=== PATIENT | male | born 1955 | race Caucasian/White ===

== ENCOUNTER 2019-01-06 20:28 | Inpatient (IN) | payer MEDICARE, OTHER ==
[2019-01-06 20:57] LABS: ADD MAN DIFF? NO
[2019-01-06 20:58] LABS: WHITE BLOOD COUNT 4.7 10^3/ul (4.8-10.8)
[2019-01-06 20:58] LABS: BASOPHILS % 0.4 % (0.0-2.0); EOSINOPHILS # 0.2 10^3/ul (0.0-0.5); EOSINOPHILS % 3.9 % (0.0-7.0); HEMATOCRIT 29.9 % (42.0-52.0); LYMPHOCYTES # 0.8 10^3/ul (0.8-2.9); LYMPHOCYTES % 17.2 % (15.0-51.0); MEAN CORPUSCULAR HEMOGLOBIN 23.8 pg (29.0-33.0); MEAN CORPUSCULAR HGB CONC 30.1 g/dl (32.0-37.0); MEAN CORPUSCULAR VOLUME 79.1 fl (82.0-101.0); MEAN PLATELET VOLUME 9.2 fl (7.4-10.4); MONOCYTE # 0.5 10^3/ul (0.3-0.9); MONOCYTES % 11.4 % (0.0-11.0); NEUTROPHIL # 3.1 10^3/ul (1.6-7.5); NEUTROPHILS % 66.7 % (39.0-77.0); PLATELET COUNT 227 10^3/UL (140-415); RED BLOOD COUNT 3.78 10^6/ul (4.70-6.10)
[2019-01-06 21:17] LABS: INR 1.15; PROTIME 14.8 Sec (11.9-14.9); PT RATIO 1.2
[2019-01-06 21:18] LABS: PARTIAL THROMBOPLASTIN TIME 23.3 Sec (23.0-35.0)
[2019-01-06 21:19] LABS: ALANINE AMINOTRANSFERASE 20 IU/L (13-69); ALBUMIN 3.1 g/dl (3.3-4.9); ALBUMIN/GLOBULIN RATIO 0.81; ALKALINE PHOSPHATASE 230 IU/L (42-121); AMYLASE 52 U/L (11-123); ANION GAP 6 (5-13); ASPARTATE AMINO TRANSFERASE 26 IU/L (15-46); BILIRUBIN,INDIRECT 0.5 mg/dl (0-1.1); BILIRUBIN,TOTAL 0.5 mg/dl (0.2-1.3); BLOOD UREA NITROGEN 14 mg/dl (7-20); CALCIUM 8.5 mg/dl (8.4-10.2); CHLORIDE 94 mmol/L (97-110); CREATINE KINASE 129 IU/L (23-200); CREATININE 1.63 mg/dl (0.61-1.24); Estimated GFR 43 mL/min (>60); GLUCOSE 123 mg/dl (70-220); LIPASE 53 U/L (23-300); POTASSIUM 3.2 mmol/L (3.5-5.1); SODIUM 140 mmol/L (135-144); TOTAL PROTEIN 6.9 g/dl (6.1-8.1)
[2019-01-06 21:29] LABS: CARBON DIOXIDE 40 mmol/L (21-31)
[2019-01-06 21:31] LABS: CK INDEX 4.4; CK-MB 5.65 ng/ml (0.0-2.4); TROPONIN-I 0.025 ng/ml (0.000-0.120)
[2019-01-06 23:06] LABS: AADO2 Arterial 42.1 mmHg (7.0-24.0); Arterial Base Excess 10.1 mmol/L (-3.0-3); Arterial Blood Gas Oxygen Sat 91.4 mmHG (95.0-98.0); Arterial COHb 0.6 % (0.0-3.0); Arterial Fraction of Oxyhgb 90.7 % (93.0-99.0); Arterial HCO3 33.3 mmol/L (22.0-26.0); Arterial MetHb 0.2 % (0.0-1.5); Arterial pCO2 39.4 mmhg (35-45); MODE ROOM AIR; Site Right Brachial
[2019-01-06] MEDS ORDERED: BISACODYL (EC) 5 MG TAB PO (23:30)
[2019-01-06] MEDS ORDERED: NACL 0.9% 3 ML SYG IV (23:30)
[2019-01-06] MEDS ORDERED: ONDANSETRON 4 MG INJ IV ×2 (23:30)
[2019-01-06] MEDS ORDERED: ACETAMINOPHEN 325 MG TAB PO ×2 (23:30)
[2019-01-06] MEDS ORDERED: DOCUSATE SODIUM 100 MG CAP PO (23:30)
[2019-01-06] MEDS ORDERED: GLUCOSE GEL 15 GRAM TUBE BUCCAL (23:45)
[2019-01-06] MEDS ORDERED: GLUCOSE GEL 15 GRAM TUBE PO ×2 (23:45)
[2019-01-06] MEDS ORDERED: GLUCAGON 1 MG INJ IM (23:45)
[2019-01-06] MEDS ORDERED: DEXTROSE 50% 50 ML SYRINGE IV ×2 (23:45)
[2019-01-07 00:04] LABS: ADD UMIC YES; UR ASCORBIC ACID NEGATIVE (NEGATIVE); UR BILIRUBIN (Dip) NEGATIVE (NEGATIVE); UR BLOOD (Dip) NEGATIVE (NEGATIVE); UR CLARITY CLEAR (CLEAR); UR COLOR YELLOW (YELLOW); UR GLUCOSE (Dip) 1+ mg/dL (NEGATIVE); UR KETONES (Dip) NEGATIVE (NEGATIVE); UR LEUKOCYTE ESTERASE (Dip) NEGATIVE Leu/ul (NEGATIVE); UR NITRITE (Dip) NEGATIVE (NEGATIVE); UR RBC 3 /HPF (0-5); UR SPECIFIC GRAVITY (Dip) 1.007 (1.003-1.030); UR SQUAMOUS EPITHELIAL CELL FEW /HPF (FEW); UR TOTAL PROTEIN (Dip) 3+ mg/dl (NEGATIVE); UR TRANSITIONAL EPI CELL FEW /HPF (NONE SEEN); UR UROBILINOGEN (Dip) NEGATIVE (NEGATIVE); UR WBC 10 /HPF (0-5)
[2019-01-07] MEDS: HEPARIN 5,000 UNIT/1 ML VIAL SC ×4 (00:15→23:31)
[2019-01-07] MEDS: INSULIN ASPART [NOVOLOG] 3 ML PEN SC ×5 (01:00→20:36)
[2019-01-07] MEDS: DEXTROSE 5%-0.45% NACL 1,000 ML IV (01:05)
[2019-01-07] MEDS: POTASSIUM CHLORIDE (SR) 20 MEQ TAB PO (01:09)
[2019-01-07] MEDS: SOD CHLORIDE 0.9% 500 ML IV (01:09)
[2019-01-07 01:25] LABS: MAGNESIUM 1.8 mg/dl (1.7-2.5)
[2019-01-07] MEDS: ACCU-CHEK XX (02:00)
[2019-01-07 05:15] LABS: ADD MAN DIFF? NO; BASOPHIL # 0.1 10^3/ul (0.0-0.1); BASOPHILS % 0.9 % (0.0-2.0); EOSINOPHILS # 0.1 10^3/ul (0.0-0.5); EOSINOPHILS % 2.6 % (0.0-7.0); HEMATOCRIT 28.1 % (42.0-52.0); HEMOGLOBIN 8.4 g/dl (14.0-18.0); LYMPHOCYTES # 1.2 10^3/ul (0.8-2.9); LYMPHOCYTES % 22.2 % (15.0-51.0); MEAN CORPUSCULAR HEMOGLOBIN 23.6 pg (29.0-33.0); MEAN CORPUSCULAR HGB CONC 29.9 g/dl (32.0-37.0); MEAN CORPUSCULAR VOLUME 78.9 fl (82.0-101.0); MEAN PLATELET VOLUME 9.1 fl (7.4-10.4); MONOCYTE # 0.5 10^3/ul (0.3-0.9); MONOCYTES % 9.9 % (0.0-11.0); NEUTROPHIL # 3.5 10^3/ul (1.6-7.5); NEUTROPHILS % 64.2 % (39.0-77.0); PLATELET COUNT 238 10^3/UL (140-415); RED BLOOD COUNT 3.56 10^6/ul (4.70-6.10); RED CELL DISTRIBUTION WIDTH 16.8 % (11.5-14.5)
[2019-01-07 05:15] LABS: WHITE BLOOD COUNT 5.4 10^3/ul (4.8-10.8)
[2019-01-07 05:35] LABS: IRON 28 ug/dl (35-150)
[2019-01-07 05:37] LABS: ALANINE AMINOTRANSFERASE 24 IU/L (13-69); ALBUMIN 3.1 g/dl (3.3-4.9); ALBUMIN/GLOBULIN RATIO 0.77; ALKALINE PHOSPHATASE 223 IU/L (42-121); ANION GAP 5 (5-13); ASPARTATE AMINO TRANSFERASE 27 IU/L (15-46); BILIRUBIN,INDIRECT 0.4 mg/dl (0-1.1); BILIRUBIN,TOTAL 0.4 mg/dl (0.2-1.3); BLOOD UREA NITROGEN 15 mg/dl (7-20); CALCIUM 8.5 mg/dl (8.4-10.2); CARBON DIOXIDE 34 mmol/L (21-31); CHLORIDE 101 mmol/L (97-110); CHOL/HDL RATIO 4.6 RATIO; CHOLESTEROL 98 mg/dl (100-200); CREATININE 2.12 mg/dl (0.61-1.24); Estimated GFR 32 mL/min (>60); GLUCOSE 133 mg/dl (70-220); HDL CHOLESTEROL 21 mg/dl (30-78); LDL CHOLESTEROL,CALCULATED 48 mg/dl; MAGNESIUM 1.8 mg/dl (1.7-2.5); POTASSIUM 3.9 mmol/L (3.5-5.1); SODIUM 140 mmol/L (135-144); TOTAL PROTEIN 7.1 g/dl (6.1-8.1); TRIGLYCERIDES 144 mg/dl (0-149)
[2019-01-07 05:42] LABS: HEMOGLOBIN A1C 8.7 % (0-5.9)
[2019-01-07 05:44] LABS: % IRON SATURATION 11 % SAT (22-52); TOTAL IRON BINDING CAPACITY 258 ug/dl (241-421)
[2019-01-07] MEDS: AMLODIPINE 10 MG TAB PO (08:47)
[2019-01-07] MEDS: CHOLECALCIFEROL 1,000 UNIT TAB PO (08:47)
[2019-01-07] MEDS ORDERED: VANCOMYCIN IV PER PHARMACY XX (09:00)
[2019-01-07] MEDS: VANCOMYCIN 1.5 GM/NS 250 ML 250 ML IVPB (11:30)
[2019-01-07 15:52] LABS: C-REACTIVE PROTEIN 4.6 mg/dl (0.0-0.9)
[2019-01-07 16:40] LABS: ERYTHROCYTE SEDIMENTATION RATE 75 mm/Hr (0-20)
[2019-01-07 17:55] LABS: HEPATITIS B SURFACE ANTIGEN NEGATIVE (NEGATIVE)
[2019-01-07 18:00] LABS: PROCALCITONIN 0.97 ng/mL (0.00-0.10)
[2019-01-07 18:13] LABS: HEPATITIS B SURFACE ANTIBODY NEGATIVE (NEGATIVE)
[2019-01-07] MEDS: ATORVASTATIN 80 MG TAB PO (20:22)
[2019-01-07] MEDS: GABAPENTIN 100 MG CAP PO (20:22)
[2019-01-08] MEDS: ACCU-CHEK XX (02:00)
[2019-01-08] MEDS: HEPARIN 5,000 UNIT/1 ML VIAL SC ×3 (06:33→22:12)
[2019-01-08] MEDS: INSULIN ASPART [NOVOLOG] 3 ML PEN SC ×2 (07:49→12:25)
[2019-01-08] MEDS: AMLODIPINE 10 MG TAB PO (08:03)
[2019-01-08] MEDS: CHOLECALCIFEROL 1,000 UNIT TAB PO (08:03)
[2019-01-08] MEDS: CEFTRIAXONE 1 GM/50 ML (PMX) 50 ML IVPB (14:21)
[2019-01-08] MEDS ORDERED: DIPHENHYDRAMINE 50 MG INJ (15:06)
[2019-01-08] MEDS: DIPHENHYDRAMINE 50 MG INJ IV (15:19)
[2019-01-08] MEDS ORDERED: DIPHENHYDRAMINE 50 MG INJ IV (15:30)
[2019-01-08] MEDS: EPINEPHrine 0.1 MG/ML SYG IV ×2 (16:26→16:27)
[2019-01-08] MEDS: EPINEPHrine 1 MG INJ IM (16:27)
[2019-01-08] MEDS: ALBUTEROL 0.083% (NEB) 2.5 MG/3 ML AMP HHN (16:50)
[2019-01-08] MEDS: METHYLPREDNISOLONE 125 MG INJ IV (17:47)
[2019-01-08] MEDS: EPOETIN ALFA-EPBX (ESRD) 4,000 UNIT/ML VIAL SC (17:50)
[2019-01-08] MEDS: CALCIUM ACETATE 667 MG CAP PO (17:52)
[2019-01-08] MEDS: INSULIN ASP PROT/ASPART (70/30) PEN SC (17:59)
[2019-01-08] MEDS: GABAPENTIN 100 MG CAP PO (21:00)
[2019-01-08] MEDS: ATORVASTATIN 80 MG TAB PO (21:00)
[2019-01-09] MEDS: ACCU-CHEK XX ×2 (02:00→05:10)
[2019-01-09] MEDS: INSULIN ASPART [NOVOLOG] 3 ML PEN SC ×3 (03:03→17:53)
[2019-01-09] MEDS: INSULIN REGULAR, HUMAN 100 UNIT/1 ML 3ML VIAL IV (05:24)
[2019-01-09] MEDS: HEPARIN 5,000 UNIT/1 ML VIAL SC ×2 (05:59→14:24)
[2019-01-09 06:12] LABS: VANCOMYCIN,RANDOM 9.5 ug/ml
[2019-01-09] MEDS ORDERED: INSULIN ASP PROT/ASPART (70/30) PEN SC (07:00)
[2019-01-09] MEDS: INSULIN ASP PROT/ASPART (70/30) PEN SC ×3 (08:07→17:52)
[2019-01-09] MEDS: CHOLECALCIFEROL 1,000 UNIT TAB PO (08:14)
[2019-01-09] MEDS: CALCIUM ACETATE 667 MG CAP PO ×3 (08:14→17:42)
[2019-01-09] MEDS: AMLODIPINE 10 MG TAB PO (08:14)
[2019-01-09] MEDS: NPH, HUMAN INSULIN ISOPHANE 3ML VIAL SC (08:16)
[2019-01-09 09:12] LABS: GLUCOSE 493 mg/dl (70-220)
[2019-01-09] MEDS: VANCOMYCIN 1.5 GM/NS 250 ML 250 ML IVPB (10:40)
[2019-01-09] MEDS ORDERED: DOXYCYCLINE 100 MG TAB PO (11:00)
[2019-01-09] MEDS ORDERED: TOBRAMYCIN IV PER PHARMACY XX (12:00)
[2019-01-09] MEDS ORDERED: TOBRAMYCIN 130 MG in SOD CHLORIDE 0.9% 100 ML IVPB (13:00)
[2019-01-09] MEDS ORDERED: TOBRAMYCIN IVPB (13:00)
[2019-01-09] MEDS ORDERED: DEXTROSE 5% IVPB (13:00)
[2019-01-09] MEDS: SOD FERRIC GLUC COMPLX 125 MG in SOD CHLORIDE 0.9% 100 ML IVPB (14:16)
[2019-01-09] MEDS: LEVOFLOXACIN 250 MG TAB PO (15:19)
[2019-01-09] MEDS ORDERED: TOBRAMYCIN 80 MG in SOD CHLORIDE 0.9% 50 ML IVPB (16:30)
[2019-01-10] MEDS ORDERED: INSULIN ASP PROT/ASPART (70/30) PEN SC ×2 (07:00)
== END 2019-01-09 20:28 | disposition home health service (06) | DRG 629 ==
LOC: 6WM 23:30 → E/R 20:28
PROVIDERS: Family Medicine
PROC: 0QBN0ZZ Excision of Right Metatarsal, Open Approach (ICD-10-PCS; principal; 2019-01-07)
PROC: 5A1D70Z Performance of Urinary Filtration, Intermittent, Less than 6 Hours Per Day (ICD-10-PCS; 2019-01-07)
DX: E11.621 Type 2 diabetes mellitus with foot ulcer (principal); I12.0 Hypertensive chronic kidney disease with stage 5 chronic kidney disease or end stage renal disease; M86.671 Other chronic osteomyelitis, right ankle and foot; E11.22 Type 2 diabetes mellitus with diabetic chronic kidney disease; E11.42 Type 2 diabetes mellitus with diabetic polyneuropathy; E11.649 Type 2 diabetes mellitus with hypoglycemia without coma; E11.69 Type 2 diabetes mellitus with other specified complication; N18.6 End stage renal disease; E11.65 Type 2 diabetes mellitus with hyperglycemia; L97.519 Non-pressure chronic ulcer of other part of right foot with unspecified severity; E11.51 Type 2 diabetes mellitus with diabetic peripheral angiopathy without gangrene; E86.0 Dehydration; E78.5 Hyperlipidemia, unspecified; B95.61 Methicillin susceptible Staphylococcus aureus infection as the cause of diseases classified elsewhere; B95.2 Enterococcus as the cause of diseases classified elsewhere; D63.8 Anemia in other chronic diseases classified elsewhere; Z79.4 Long term (current) use of insulin; Z99.2 Dependence on renal dialysis; Z89.421 Acquired absence of other right toe(s)
CPT/HCPCS: 36415; 36600; 70450; 71045; 73630; 73718; 80053; 80061; 80202; 81001; 82150; 82550; 82553; 82728; 82803; 82947; 82962; 83036; 83540; 83690; 83735; 84145; 84443; 84484; 85025; 85610; 85651; 85730; 86140; 86706; 87070; 87340; 90935; 93005; 93306; 93880; 93922; 94664; 99285-25

== ENCOUNTER 2019-02-17 13:46 | Inpatient (IN) | payer MEDICARE, OTHER ==
[2019-02-17] MEDS: ACETAMINOPHEN 325 MG TAB PO ×2 (14:00→20:28)
[2019-02-17] MEDS: LEVOFLOXACIN 750MG/D5W (PMX) 150 ML IVPB (14:01)
[2019-02-17] MEDS: SODIUM CHLORIDE 0.9% 1L BAG IV* (14:01)
[2019-02-17 14:07] LABS: ADD MAN DIFF? NO
[2019-02-17 14:14] LABS: WHITE BLOOD COUNT 3.7 10^3/ul (4.8-10.8)
[2019-02-17 14:14] LABS: ABNORMAL IP MESSAGE 1; BASOPHILS % 0.3 % (0.0-2.0); EOSINOPHILS % 0.5 % (0.0-7.0); HEMATOCRIT 31.2 % (42.0-52.0); HEMOGLOBIN 9.4 g/dl (14.0-18.0); LYMPHOCYTES # 0.6 10^3/ul (0.8-2.9); LYMPHOCYTES % 16.1 % (15.0-51.0); MEAN CORPUSCULAR HEMOGLOBIN 23.3 pg (29.0-33.0); MEAN CORPUSCULAR HGB CONC 30.1 g/dl (32.0-37.0); MEAN CORPUSCULAR VOLUME 77.2 fl (82.0-101.0); MEAN PLATELET VOLUME 9.4 fl (7.4-10.4); MONOCYTE # 0.7 10^3/ul (0.3-0.9); MONOCYTES % 17.8 % (0.0-11.0); NEUTROPHIL # 2.4 10^3/ul (1.6-7.5); PLATELET COUNT 123 10^3/UL (140-415); POSITIVE DIFF @See below; RED BLOOD COUNT 4.04 10^6/ul (4.70-6.10)
[2019-02-17 14:44] LABS: INR 1.23; PROTIME 15.6 Sec (11.9-14.9); PT RATIO 1.2
[2019-02-17 14:45] LABS: PARTIAL THROMBOPLASTIN TIME 32.1 Sec (23.0-35.0)
[2019-02-17 14:50] LABS: ALANINE AMINOTRANSFERASE 34 IU/L (13-69); ALBUMIN 3.6 g/dl (3.3-4.9); ALBUMIN/GLOBULIN RATIO 0.97; ALKALINE PHOSPHATASE 232 IU/L (42-121); ANION GAP 11 (5-13); ASPARTATE AMINO TRANSFERASE 44 IU/L (15-46); BILIRUBIN,INDIRECT 0.8 mg/dl (0-1.1); BILIRUBIN,TOTAL 0.8 mg/dl (0.2-1.3); BLOOD UREA NITROGEN 17 mg/dl (7-20); CALCIUM 8.4 mg/dl (8.4-10.2); CARBON DIOXIDE 33 mmol/L (21-31); CHLORIDE 90 mmol/L (97-110); CREATININE 2.27 mg/dl (0.61-1.24); Estimated GFR 29 mL/min (>60); GLUCOSE 175 mg/dl (70-220); POTASSIUM 3.9 mmol/L (3.5-5.1); SODIUM 134 mmol/L (135-144); TOTAL PROTEIN 7.3 g/dl (6.1-8.1)
[2019-02-17 14:52] LABS: TROPONIN-I 0.358 ng/ml (0.000-0.120)
[2019-02-17] MEDS: ASPIRIN 81 MG TAB PO (15:55)
[2019-02-17] MEDS: VANCOMYCIN 1 GM (PMX) 250 ML IVPB (15:55)
[2019-02-17] MEDS ORDERED: ONDANSETRON 4 MG INJ IV ×2 (16:00→17:00)
[2019-02-17] MEDS ORDERED: ACETAMINOPHEN 325 MG TAB PO (16:00)
[2019-02-17] MEDS ORDERED: DOCUSATE SODIUM 100 MG CAP PO (17:00)
[2019-02-17] MEDS ORDERED: HYDROCODONE/APAP (5/325) TAB PO (17:00)
[2019-02-17] MEDS ORDERED: NACL 0.9% 3 ML SYG IV (17:00)
[2019-02-17] MEDS ORDERED: MAGNESIUM HYDROXIDE 30ML CUP PO (17:00)
[2019-02-17] MEDS ORDERED: VANCOMYCIN IV PER PHARMACY XX (17:00)
[2019-02-17] MEDS ORDERED: NITROGLYCERIN (SL) 0.4 MG TAB SL (17:00)
[2019-02-17 18:02] LABS: CREATINE KINASE 297 IU/L (23-200)
[2019-02-17 18:05] LABS: LACTIC ACID 1.3 mmol/L (0.5-2.0)
[2019-02-17 18:15] LABS: CK INDEX 1.9
[2019-02-17] MEDS: CALCIUM ACETATE 667 MG CAP PO (18:51)
[2019-02-17] MEDS ORDERED: GLUCOSE GEL 15 GRAM TUBE PO ×2 (19:00)
[2019-02-17] MEDS ORDERED: GLUCOSE GEL 15 GRAM TUBE BUCCAL (19:00)
[2019-02-17] MEDS ORDERED: DEXTROSE 50% 50 ML SYRINGE IV (19:00)
[2019-02-17] MEDS ORDERED: GLUCAGON 1 MG INJ IM (19:00)
[2019-02-17] MEDS: ALBUTEROL 0.083% (NEB) 2.5 MG/3 ML AMP HHN (20:00)
[2019-02-17] MEDS: GUAIFENESIN/DM 5ML CUP PO (20:27)
[2019-02-17] MEDS: VANCOMYCIN 500 MG (PMX) 100 ML IVPB (20:33)
[2019-02-17 20:39] LABS: LACTIC ACID 1.2 mmol/L (0.5-2.0)
[2019-02-17] MEDS ORDERED: FUROSEMIDE 40 MG TAB PO (21:00)
[2019-02-17] MEDS: INSULIN ASP PROT/ASPART (70/30) PEN SC (21:00)
[2019-02-17 23:52] LABS: CREATINE KINASE 324 IU/L (23-200)
[2019-02-18 00:09] LABS: CK INDEX 1.5
[2019-02-18 00:11] LABS: CK-MB 4.94 ng/ml (0.0-2.4)
[2019-02-18 01:24] LABS: ADD MAN DIFF? NO
[2019-02-18 01:28] LABS: BASOPHILS % 0.2 % (0.0-2.0); EOSINOPHILS % 0.2 % (0.0-7.0); HEMATOCRIT 30.6 % (42.0-52.0); LYMPHOCYTES # 0.7 10^3/ul (0.8-2.9); LYMPHOCYTES % 16.7 % (15.0-51.0); MEAN CORPUSCULAR HEMOGLOBIN 22.8 pg (29.0-33.0); MEAN CORPUSCULAR HGB CONC 29.4 g/dl (32.0-37.0); MEAN CORPUSCULAR VOLUME 77.7 fl (82.0-101.0); MONOCYTE # 0.6 10^3/ul (0.3-0.9); MONOCYTES % 14.3 % (0.0-11.0); NEUTROPHILS % 68.4 % (39.0-77.0); PLATELET COUNT 124 10^3/UL (140-415); RED BLOOD COUNT 3.94 10^6/ul (4.70-6.10); RED CELL DISTRIBUTION WIDTH 18.4 % (11.5-14.5)
[2019-02-18 01:28] LABS: WHITE BLOOD COUNT 4.4 10^3/ul (4.8-10.8)
[2019-02-18 01:47] LABS: INR 1.34; PROTIME 16.7 Sec (11.9-14.9); PT RATIO 1.3
[2019-02-18 01:48] LABS: PARTIAL THROMBOPLASTIN TIME 35.5 Sec (23.0-35.0)
[2019-02-18] MEDS: HEPARIN 25000 UNITS/250 ML 250 ML IV (02:27)
[2019-02-18] MEDS: GUAIFENESIN/DM 5ML CUP PO (02:46)
[2019-02-18] MEDS: ALBUTEROL 0.083% (NEB) 2.5 MG/3 ML AMP HHN ×3 (03:26→13:00)
[2019-02-18] MEDS: ACETAMINOPHEN 325 MG TAB PO (04:36)
[2019-02-18] MEDS: PANTOPRAZOLE (EC) 40 MG TAB PO (05:44)
[2019-02-18] MEDS: BUMETANIDE 1 MG TAB PO (08:23)
[2019-02-18] MEDS: CALCIUM ACETATE 667 MG CAP PO ×3 (08:23→18:00)
[2019-02-18] MEDS: AMLODIPINE 10 MG TAB PO (08:24)
[2019-02-18] MEDS: INSULIN ASP PROT/ASPART (70/30) PEN SC (08:33)
[2019-02-18 09:13] LABS: ADD MAN DIFF? NO
[2019-02-18 09:19] LABS: BASOPHILS % 0.2 % (0.0-2.0); HEMATOCRIT 30.3 % (42.0-52.0); LYMPHOCYTES % 20.2 % (15.0-51.0); MEAN CORPUSCULAR HGB CONC 29.7 g/dl (32.0-37.0); MEAN CORPUSCULAR VOLUME 77.5 fl (82.0-101.0); MEAN PLATELET VOLUME 10.1 fl (7.4-10.4); MONOCYTE # 0.6 10^3/ul (0.3-0.9); MONOCYTES % 12.1 % (0.0-11.0); NEUTROPHIL # 3.2 10^3/ul (1.6-7.5); NEUTROPHILS % 66.9 % (39.0-77.0); PLATELET COUNT 128 10^3/UL (140-415); RED BLOOD COUNT 3.91 10^6/ul (4.70-6.10); RED CELL DISTRIBUTION WIDTH 18.1 % (11.5-14.5)
[2019-02-18 09:19] LABS: WHITE BLOOD COUNT 4.8 10^3/ul (4.8-10.8)
[2019-02-18 09:35] LABS: ALANINE AMINOTRANSFERASE 28 IU/L (13-69); ALBUMIN 3.6 g/dl (3.3-4.9); ALBUMIN/GLOBULIN RATIO 1.02; ALKALINE PHOSPHATASE 201 IU/L (42-121); ANION GAP 11 (5-13); ASPARTATE AMINO TRANSFERASE 37 IU/L (15-46); BILIRUBIN,INDIRECT 0.6 mg/dl (0-1.1); BILIRUBIN,TOTAL 0.6 mg/dl (0.2-1.3); BLOOD UREA NITROGEN 27 mg/dl (7-20); CALCIUM 8.5 mg/dl (8.4-10.2); CARBON DIOXIDE 31 mmol/L (21-31); CHLORIDE 93 mmol/L (97-110); CREATININE 3.38 mg/dl (0.61-1.24); Estimated GFR 18 mL/min (>60); GLUCOSE 123 mg/dl (70-220); POTASSIUM 3.6 mmol/L (3.5-5.1); SODIUM 135 mmol/L (135-144); TOTAL PROTEIN 7.1 g/dl (6.1-8.1)
[2019-02-18 09:38] LABS: PARTIAL THROMBOPLASTIN TIME 45.5 Sec (23.0-35.0)
[2019-02-18 10:17] LABS: MAGNESIUM 1.8 mg/dl (1.7-2.5)
[2019-02-18] MEDS: HEPARIN 1000 UNITS/ML 10 ML INJ IV (11:02)
[2019-02-18] MEDS: DEXTROSE 50% 50 ML SYRINGE IV ×3 (12:38→13:49)
[2019-02-18] MEDS: NPH, HUMAN INSULIN ISOPHANE 3ML VIAL SC (13:34)
[2019-02-18] MEDS: METHYLPREDNISOLONE 40 MG INJ IV ×3 (13:37→22:33)
[2019-02-18] MEDS: DEXTROSE 10%/0.45% NACL 1,000 ML IV (14:50)
[2019-02-18] MEDS: DEXTROSE 10% 1,000 ML IV (15:36)
[2019-02-18] MEDS: FUROSEMIDE 40 MG INJ IV (15:51)
[2019-02-18] MEDS: INSULIN ASPART [NOVOLOG] 3 ML PEN SC ×2 (18:00→20:50)
[2019-02-18 18:15] LABS: PARTIAL THROMBOPLASTIN TIME 77.1 Sec (23.0-35.0)
[2019-02-18 18:53] LABS: CREATINE KINASE 293 IU/L (23-200)
[2019-02-18 19:25] LABS: CK INDEX 1.2
[2019-02-18 19:39] LABS: CK-MB 3.53 ng/ml (0.0-2.4)
[2019-02-18] MEDS: ALBUTEROL/IPRATROPIUM (NEB) 3 ML AMP HHN (19:50)
[2019-02-19] MEDS: INSULIN ASPART [NOVOLOG] 3 ML PEN SC ×8 (01:00→21:35)
[2019-02-19 01:17] LABS: CREATINE KINASE 255 IU/L (23-200)
[2019-02-19 01:22] LABS: PARTIAL THROMBOPLASTIN TIME 62.4 Sec (23.0-35.0)
[2019-02-19 01:29] LABS: CK INDEX 1.8
[2019-02-19 01:43] LABS: CK-MB 4.47 ng/ml (0.0-2.4)
[2019-02-19] MEDS: HEPARIN 25000 UNITS/250 ML 250 ML IV (02:47)
[2019-02-19 05:35] LABS: ADD MAN DIFF? NO
[2019-02-19 05:44] LABS: ABNORMAL IP MESSAGE 1; HEMATOCRIT 29.8 % (42.0-52.0); LYMPHOCYTES # 0.5 10^3/ul (0.8-2.9); LYMPHOCYTES % 13.9 % (15.0-51.0); MEAN CORPUSCULAR HGB CONC 30.2 g/dl (32.0-37.0); MEAN PLATELET VOLUME 9.5 fl (7.4-10.4); MONOCYTE # 0.1 10^3/ul (0.3-0.9); MONOCYTES % 4.2 % (0.0-11.0); NEUTROPHIL # 2.7 10^3/ul (1.6-7.5); NEUTROPHILS % 81.3 % (39.0-77.0); PLATELET COUNT 126 10^3/UL (140-415); POSITIVE DIFF @See below; RED BLOOD COUNT 3.92 10^6/ul (4.70-6.10); RED CELL DISTRIBUTION WIDTH 17.7 % (11.5-14.5)
[2019-02-19 05:44] LABS: WHITE BLOOD COUNT 3.4 10^3/ul (4.8-10.8)
[2019-02-19 05:58] LABS: INR 1.34; PROTIME 16.7 Sec (11.9-14.9); PT RATIO 1.3
[2019-02-19] MEDS: PANTOPRAZOLE (EC) 40 MG TAB PO (05:58)
[2019-02-19] MEDS: METHYLPREDNISOLONE 40 MG INJ IV ×2 (05:58→17:41)
[2019-02-19] MEDS: DEXTROSE 10%/0.45% NACL 1,000 ML IV (05:58)
[2019-02-19 06:03] LABS: ANION GAP 13 (5-13); BLOOD UREA NITROGEN 43 mg/dl (7-20); CALCIUM 8.6 mg/dl (8.4-10.2); CARBON DIOXIDE 28 mmol/L (21-31); CHLORIDE 89 mmol/L (97-110); Estimated GFR 15 mL/min (>60); GLUCOSE 313 mg/dl (70-220); POTASSIUM 4.1 mmol/L (3.5-5.1); SODIUM 130 mmol/L (135-144)
[2019-02-19 06:53] LABS: VANCOMYCIN,RANDOM 18.1 ug/ml
[2019-02-19 07:27] LABS: PARTIAL THROMBOPLASTIN TIME 58.5 Sec (23.0-35.0)
[2019-02-19] MEDS: DIPHENHYDRAMINE 50 MG CAP PO (08:00)
[2019-02-19] MEDS: DIAZEPAM 5 MG TAB PO (08:00)
[2019-02-19] MEDS: ALBUTEROL/IPRATROPIUM (NEB) 3 ML AMP HHN ×3 (08:00→19:58)
[2019-02-19] MEDS: AMLODIPINE 10 MG TAB PO (08:08)
[2019-02-19] MEDS: BUMETANIDE 1 MG TAB PO (08:08)
[2019-02-19] MEDS: CALCIUM ACETATE 667 MG CAP PO ×3 (08:08→17:43)
[2019-02-19] MEDS: GUAIFENESIN/DM 5ML CUP PO (10:11)
[2019-02-19 12:17] LABS: HEPATITIS B SURFACE ANTIGEN NEGATIVE (NEGATIVE)
[2019-02-19] MEDS: LIDOCAINE 4% CR TOP (14:49)
[2019-02-19] MEDS: LEVOFLOXACIN 500MG/D5W (PMX) 100 ML IVPB (17:42)
[2019-02-19] MEDS: EPOETIN ALFA-EPBX (ESRD) 4,000 UNIT/ML VIAL SC (17:43)
[2019-02-19] MEDS: INSULIN ASP PROT/ASPART (70/30) PEN SC (21:49)
[2019-02-19] MEDS: VANCOMYCIN 1 GM 250 ML IVPB (22:58)
[2019-02-20] MEDS: METHYLPREDNISOLONE 40 MG INJ IV ×3 (00:02→21:37)
[2019-02-20] MEDS: NPH, HUMAN INSULIN ISOPHANE 3ML VIAL SC ×3 (00:10→21:32)
[2019-02-20] MEDS: HEPARIN 25000 UNITS/250 ML 250 ML IV (02:36)
[2019-02-20] MEDS: PANTOPRAZOLE (EC) 40 MG TAB PO (06:08)
[2019-02-20 06:14] LABS: ADD MAN DIFF? NO
[2019-02-20 06:18] LABS: ABNORMAL IP MESSAGE 1; HEMATOCRIT 29.1 % (42.0-52.0); HEMOGLOBIN 8.8 g/dl (14.0-18.0); LYMPHOCYTES # 0.5 10^3/ul (0.8-2.9); LYMPHOCYTES % 9.6 % (15.0-51.0); MEAN CORPUSCULAR HEMOGLOBIN 23.3 pg (29.0-33.0); MEAN CORPUSCULAR HGB CONC 30.2 g/dl (32.0-37.0); MEAN PLATELET VOLUME 10.5 fl (7.4-10.4); MONOCYTE # 0.2 10^3/ul (0.3-0.9); MONOCYTES % 4.6 % (0.0-11.0); NEUTROPHIL # 4.4 10^3/ul (1.6-7.5); NEUTROPHILS % 85.4 % (39.0-77.0); PLATELET COUNT 159 10^3/UL (140-415); POSITIVE DIFF @See below; RED BLOOD COUNT 3.78 10^6/ul (4.70-6.10); RED CELL DISTRIBUTION WIDTH 17.5 % (11.5-14.5)
[2019-02-20 06:18] LABS: WHITE BLOOD COUNT 5.2 10^3/ul (4.8-10.8)
[2019-02-20 06:42] LABS: CREATINE KINASE 119 IU/L (23-200)
[2019-02-20 06:49] LABS: CK INDEX 4.5
[2019-02-20 06:52] LABS: CK-MB 5.36 ng/ml (0.0-2.4); TROPONIN-I 0.784 ng/ml (0.000-0.120)
[2019-02-20 06:59] LABS: PHOSPHORUS 4.6 mg/dl (2.5-4.9)
[2019-02-20 06:59] LABS: ALBUMIN 3.1 g/dl (3.3-4.9); ANION GAP 10 (5-13); BLOOD UREA NITROGEN 47 mg/dl (7-20); CALCIUM 8.3 mg/dl (8.4-10.2); CARBON DIOXIDE 25 mmol/L (21-31); CHLORIDE 97 mmol/L (97-110); CREATININE 3.17 mg/dl (0.61-1.24); GLUCOSE 374 mg/dl (70-220); PHOSPHORUS 4.5 mg/dl (2.5-4.9); POTASSIUM 3.8 mmol/L (3.5-5.1); SODIUM 132 mmol/L (135-144)
[2019-02-20 07:55] LABS: IRON 67 ug/dl (35-150)
[2019-02-20] MEDS: ALBUTEROL/IPRATROPIUM (NEB) 3 ML AMP HHN ×3 (08:01→19:19)
[2019-02-20 08:04] LABS: % IRON SATURATION 28 % SAT (22-52); TOTAL IRON BINDING CAPACITY 242 ug/dl (241-421)
[2019-02-20] MEDS: CALCIUM ACETATE 667 MG CAP PO ×3 (08:15→17:17)
[2019-02-20] MEDS: AMLODIPINE 10 MG TAB PO (08:16)
[2019-02-20] MEDS: BUMETANIDE 1 MG TAB PO (08:16)
[2019-02-20] MEDS: ASPIRIN 81 MG TAB PO (08:18)
[2019-02-20] MEDS: INSULIN ASPART [NOVOLOG] 3 ML PEN SC ×5 (08:21→22:37)
[2019-02-20] MEDS ORDERED: INSULIN ASP PROT/ASPART (70/30) PEN SC ×2 (09:00→21:00)
[2019-02-20] MEDS: INSULIN ASP PROT/ASPART (70/30) PEN SC (09:22)
[2019-02-20 09:46] LABS: GLUCOSE 436 mg/dl (70-220)
[2019-02-20] MEDS ORDERED: NPH, HUMAN INSULIN ISOPHANE 3ML VIAL SC ×2 (14:00)
[2019-02-20] MEDS: ERGOCALCIFEROL 50,000 UNIT CAP PO (14:45)
[2019-02-20] MEDS ORDERED: METHYLPREDNISOLONE 40 MG INJ IV (21:00)
[2019-02-21] MEDS: ACCU-CHEK XX ×3 (01:03→22:00)
[2019-02-21] MEDS: INSULIN ASPART [NOVOLOG] 3 ML PEN SC ×7 (01:09→22:17)
[2019-02-21] MEDS: HEPARIN 25000 UNITS/250 ML 250 ML IV ×4 (03:16→23:25)
[2019-02-21] MEDS: INSULIN REGULAR, HUMAN 100 UNIT/1 ML 3ML VIAL IV (04:09)
[2019-02-21 06:12] LABS: ADD MAN DIFF? NO
[2019-02-21 06:22] LABS: HEMATOCRIT 29.5 % (42.0-52.0); LYMPHOCYTES # 0.7 10^3/ul (0.8-2.9); LYMPHOCYTES % 12.2 % (15.0-51.0); MEAN CORPUSCULAR HGB CONC 30.5 g/dl (32.0-37.0); MEAN CORPUSCULAR VOLUME 75.4 fl (82.0-101.0); MEAN PLATELET VOLUME 10.2 fl (7.4-10.4); MONOCYTE # 0.3 10^3/ul (0.3-0.9); MONOCYTES % 4.7 % (0.0-11.0); NEUTROPHIL # 4.5 10^3/ul (1.6-7.5); NEUTROPHILS % 82.9 % (39.0-77.0); PLATELET COUNT 181 10^3/UL (140-415); RED BLOOD COUNT 3.91 10^6/ul (4.70-6.10); RED CELL DISTRIBUTION WIDTH 17.3 % (11.5-14.5)
[2019-02-21 06:22] LABS: WHITE BLOOD COUNT 5.5 10^3/ul (4.8-10.8)
[2019-02-21 07:04] LABS: ALBUMIN 2.9 g/dl (3.3-4.9); ANION GAP 13 (5-13); BLOOD UREA NITROGEN 70 mg/dl (7-20); CALCIUM 8.5 mg/dl (8.4-10.2); CARBON DIOXIDE 24 mmol/L (21-31); CHLORIDE 97 mmol/L (97-110); CREATININE 3.96 mg/dl (0.61-1.24); GLUCOSE 279 mg/dl (70-220); PHOSPHORUS 4.8 mg/dl (2.5-4.9); POTASSIUM 3.7 mmol/L (3.5-5.1); SODIUM 134 mmol/L (135-144)
[2019-02-21 07:07] LABS: MAGNESIUM 2.2 mg/dl (1.7-2.5)
[2019-02-21] MEDS: ALBUTEROL/IPRATROPIUM (NEB) 3 ML AMP HHN ×3 (08:00→19:54)
[2019-02-21] MEDS: METHYLPREDNISOLONE 40 MG INJ IV (08:08)
[2019-02-21] MEDS: HEPARIN 1000 UNITS/ML 10 ML INJ IV (08:09)
[2019-02-21] MEDS: NPH, HUMAN INSULIN ISOPHANE 3ML VIAL SC (08:14)
[2019-02-21] MEDS: CALCIUM ACETATE 667 MG CAP PO ×3 (08:15→18:01)
[2019-02-21] MEDS: ASPIRIN 81 MG TAB PO (08:15)
[2019-02-21] MEDS: AMLODIPINE 10 MG TAB PO (08:15)
[2019-02-21] MEDS: PANTOPRAZOLE (EC) 40 MG TAB PO (08:15)
[2019-02-21] MEDS: BUMETANIDE 1 MG TAB PO (08:15)
[2019-02-21 09:34] LABS: PARATHYROID HORMONE 158.8 pg/ml (24.0-73.0)
[2019-02-21] MEDS: LEVOFLOXACIN 500MG/D5W (PMX) 100 ML IVPB (13:15)
[2019-02-21 14:04] LABS: PARTIAL THROMBOPLASTIN TIME 141.1 Sec (23.0-35.0)
[2019-02-21 17:20] LABS: PARTIAL THROMBOPLASTIN TIME 59.7 Sec (23.0-35.0)
[2019-02-21] MEDS: INSULIN ASP PROT/ASPART (70/30) PEN SC (22:16)
[2019-02-21 23:42] LABS: PARTIAL THROMBOPLASTIN TIME 56.9 Sec (23.0-35.0)
[2019-02-22] MEDS: INSULIN REGULAR, HUMAN 100 UNIT/1 ML 3ML VIAL IV (01:45)
[2019-02-22] MEDS: INSULIN GLARGINE [LANTus] (100 UNITS/ML) SYG SC (01:46)
[2019-02-22] MEDS: INSULIN ASPART [NOVOLOG] 3 ML PEN SC ×5 (05:17→21:00)
[2019-02-22] MEDS: ACCU-CHEK XX (05:18)
[2019-02-22 05:40] LABS: ADD MAN DIFF? NO
[2019-02-22 05:44] LABS: WHITE BLOOD COUNT 5.4 10^3/ul (4.8-10.8)
[2019-02-22 05:44] LABS: HEMATOCRIT 29.8 % (42.0-52.0); HEMOGLOBIN 9.2 g/dl (14.0-18.0); LYMPHOCYTES # 0.8 10^3/ul (0.8-2.9); LYMPHOCYTES % 13.9 % (15.0-51.0); MEAN CORPUSCULAR HEMOGLOBIN 23.1 pg (29.0-33.0); MEAN CORPUSCULAR HGB CONC 30.9 g/dl (32.0-37.0); MEAN CORPUSCULAR VOLUME 74.9 fl (82.0-101.0); MEAN PLATELET VOLUME 10.3 fl (7.4-10.4); MONOCYTE # 0.5 10^3/ul (0.3-0.9); MONOCYTES % 9.7 % (0.0-11.0); NEUTROPHILS % 74.9 % (39.0-77.0); NUCLEATED RED BLOOD CELLS% 0.4 /100WBC (0.0-0.0); PLATELET COUNT 204 10^3/UL (140-415); RED BLOOD COUNT 3.98 10^6/ul (4.70-6.10); RED CELL DISTRIBUTION WIDTH 17.4 % (11.5-14.5)
[2019-02-22 06:04] LABS: INR 1.33; PROTIME 16.6 Sec (11.9-14.9); PT RATIO 1.3
[2019-02-22 06:11] LABS: ALBUMIN 3.2 g/dl (3.3-4.9); ANION GAP 12 (5-13); BLOOD UREA NITROGEN 87 mg/dl (7-20); CALCIUM 8.9 mg/dl (8.4-10.2); CARBON DIOXIDE 24 mmol/L (21-31); CHLORIDE 97 mmol/L (97-110); CREATININE 4.63 mg/dl (0.61-1.24); GLUCOSE 331 mg/dl (70-220); PHOSPHORUS 5.3 mg/dl (2.5-4.9); POTASSIUM 4.1 mmol/L (3.5-5.1); SODIUM 133 mmol/L (135-144)
[2019-02-22] MEDS: PANTOPRAZOLE (EC) 40 MG TAB PO (06:25)
[2019-02-22 07:22] LABS: VANCOMYCIN,RANDOM 16.7 ug/ml
[2019-02-22 07:36] LABS: MAGNESIUM 2.1 mg/dl (1.7-2.5)
[2019-02-22] MEDS: BUMETANIDE 1 MG TAB PO (08:42)
[2019-02-22] MEDS: CALCIUM ACETATE 667 MG CAP PO ×3 (08:42→17:31)
[2019-02-22] MEDS: ASPIRIN 81 MG TAB PO (08:42)
[2019-02-22] MEDS: INSULIN ASP PROT/ASPART (70/30) PEN SC ×2 (08:49→21:09)
[2019-02-22] MEDS: NPH, HUMAN INSULIN ISOPHANE 3ML VIAL SC (08:49)
[2019-02-22] MEDS: ALBUTEROL/IPRATROPIUM (NEB) 3 ML AMP HHN ×3 (08:49→20:35)
[2019-02-22] MEDS ORDERED: MIDAZOLAM 1 MG/ML 2 ML INJ (08:54)
[2019-02-22] MEDS ORDERED: HEPARIN 1000 UNITS/ML 10 ML INJ (08:54)
[2019-02-22] MEDS ORDERED: FENTAnyl 50 MCG/ML VIAL (08:54)
[2019-02-22] MEDS ORDERED: VERAPAMIL 5 MG INJ (08:54)
[2019-02-22] MEDS ORDERED: IODIXANOL LOCM 100 ML BTL (08:54)
[2019-02-22] MEDS ORDERED: NITROGLYCERIN (IC) 100 MCG/ML INJ (08:55)
[2019-02-22] MEDS: METHYLPREDNISOLONE 40 MG INJ IV (08:56)
[2019-02-22] MEDS: AMLODIPINE 10 MG TAB PO (09:00)
[2019-02-22] MEDS: DIPHENHYDRAMINE 50 MG CAP PO (09:15)
[2019-02-22] MEDS: DIAZEPAM 5 MG TAB PO (09:15)
[2019-02-22] MEDS ORDERED: TICAGRELOR 90 MG TABLET (11:21)
[2019-02-22] MEDS ORDERED: BIVALIRUDIN 250MG /NS 50 ML 50 ML IVPB ×2 (11:21→11:48)
[2019-02-22] MEDS ORDERED: ASPIRIN 325 MG TAB (11:22)
[2019-02-22] MEDS ORDERED: IOHEXOL 350MG/ML 50 ML BTL (11:32)
[2019-02-22] MEDS ORDERED: SOD CHLORIDE 0.9% 1,000 ML IV (11:48)
[2019-02-22] MEDS ORDERED: morphine 2 MG INJ IV (12:00)
[2019-02-22] MEDS ORDERED: ONDANSETRON 4 MG INJ IV (12:00)
[2019-02-22] MEDS ORDERED: OXYCODONE/ACETAMINOPHEN (5/325) TAB PO (12:00)
[2019-02-22] MEDS ORDERED: AL HYDROX/MG HYDROX/SIMETH 30 ML CUP PO (12:00)
[2019-02-22] MEDS ORDERED: ACETAMINOPHEN 325 MG TAB PO (12:00)
[2019-02-22] MEDS: LIDOCAINE 4% CR TOP (18:12)
[2019-02-22] MEDS: EPOETIN ALFA-EPBX (ESRD) 4,000 UNIT/ML VIAL SC (18:30)
[2019-02-22] MEDS: TICAGRELOR 90 MG TABLET PO (21:09)
[2019-02-22] MEDS: VANCOMYCIN 1 GM 250 ML IVPB (22:14)
[2019-02-23] MEDS: PANTOPRAZOLE (EC) 40 MG TAB PO (05:48)
[2019-02-23 06:06] LABS: ADD MAN DIFF? NO
[2019-02-23 06:08] LABS: ABNORMAL IP MESSAGE 1; HEMATOCRIT 29.1 % (42.0-52.0); HEMOGLOBIN 9.2 g/dl (14.0-18.0); LYMPHOCYTES # 0.6 10^3/ul (0.8-2.9); LYMPHOCYTES % 11.8 % (15.0-51.0); MEAN CORPUSCULAR HEMOGLOBIN 23.2 pg (29.0-33.0); MEAN CORPUSCULAR HGB CONC 31.6 g/dl (32.0-37.0); MEAN CORPUSCULAR VOLUME 73.3 fl (82.0-101.0); MEAN PLATELET VOLUME 9.5 fl (7.4-10.4); MONOCYTE # 0.6 10^3/ul (0.3-0.9); MONOCYTES % 12.4 % (0.0-11.0); NEUTROPHIL # 3.7 10^3/ul (1.6-7.5); NEUTROPHILS % 74.6 % (39.0-77.0); PLATELET COUNT 200 10^3/UL (140-415); POSITIVE DIFF @See below; RED BLOOD COUNT 3.97 10^6/ul (4.70-6.10)
[2019-02-23 06:34] LABS: CREATINE KINASE 85 IU/L (23-200)
[2019-02-23 06:45] LABS: CK INDEX 5.1
[2019-02-23 06:50] LABS: ALBUMIN 2.8 g/dl (3.3-4.9); ANION GAP 9 (5-13); BLOOD UREA NITROGEN 54 mg/dl (7-20); CALCIUM 8.4 mg/dl (8.4-10.2); CARBON DIOXIDE 27 mmol/L (21-31); CHLORIDE 100 mmol/L (97-110); CREATININE 3.35 mg/dl (0.61-1.24); GLUCOSE 144 mg/dl (70-220); POTASSIUM 3.6 mmol/L (3.5-5.1); SODIUM 136 mmol/L (135-144)
[2019-02-23 06:58] LABS: CK-MB 4.34 ng/ml (0.0-2.4); TROPONIN-I 0.577 ng/ml (0.000-0.120)
[2019-02-23] MEDS: ALBUTEROL/IPRATROPIUM (NEB) 3 ML AMP HHN ×2 (08:00→13:08)
[2019-02-23] MEDS: INSULIN ASPART [NOVOLOG] 3 ML PEN SC ×2 (08:00→12:00)
[2019-02-23] MEDS: AMLODIPINE 10 MG TAB PO (09:07)
[2019-02-23] MEDS: CALCIUM ACETATE 667 MG CAP PO ×2 (09:08→12:02)
[2019-02-23] MEDS: TICAGRELOR 90 MG TABLET PO (09:12)
[2019-02-23] MEDS: ASPIRIN 81 MG TAB PO (09:14)
[2019-02-23] MEDS: BUMETANIDE 1 MG TAB PO (09:14)
[2019-02-23] MEDS: ASPIRIN (EC) 81 MG TAB PO (09:20)
[2019-02-23] MEDS: INSULIN ASP PROT/ASPART (70/30) PEN SC (09:27)
== END 2019-02-23 16:37 | disposition home or self-care (01) | DRG 853 ==
LOC: E/R 13:46 → 6WM 15:55
PROVIDERS: Internal Medicine
PROC: 027034Z Dilation of Coronary Artery, One Artery with Drug-eluting Intraluminal Device, Percutaneous Approach (ICD-10-PCS; principal; 2019-02-22 09:27)
PROC: 4A023N7 Measurement of Cardiac Sampling and Pressure, Left Heart, Percutaneous Approach (ICD-10-PCS; 2019-02-22 09:27)
PROC: B211YZZ Fluoroscopy of Multiple Coronary Arteries using Other Contrast (ICD-10-PCS; 2019-02-22 09:27)
PROC: B215YZZ Fluoroscopy of Left Heart using Other Contrast (ICD-10-PCS; 2019-02-22 09:27)
PROC: 5A1D70Z Performance of Urinary Filtration, Intermittent, Less than 6 Hours Per Day (ICD-10-PCS; 2019-02-22 09:27)
DX: A41.9 Sepsis, unspecified organism (principal); I21.4 Non-ST elevation (NSTEMI) myocardial infarction; N18.6 End stage renal disease; J18.9 Pneumonia, unspecified organism; J96.01 Acute respiratory failure with hypoxia; M86.8X7 Other osteomyelitis, ankle and foot; E87.1 Hypo-osmolality and hyponatremia; D61.818 Other pancytopenia; G93.40 Encephalopathy, unspecified; E11.52 Type 2 diabetes mellitus with diabetic peripheral angiopathy with gangrene; I96 Gangrene, not elsewhere classified; I12.0 Hypertensive chronic kidney disease with stage 5 chronic kidney disease or end stage renal disease; E11.22 Type 2 diabetes mellitus with diabetic chronic kidney disease; E66.9 Obesity, unspecified; J20.9 Acute bronchitis, unspecified; J06.9 Acute upper respiratory infection, unspecified; E11.69 Type 2 diabetes mellitus with other specified complication; D63.8 Anemia in other chronic diseases classified elsewhere; E11.621 Type 2 diabetes mellitus with foot ulcer; L97.519 Non-pressure chronic ulcer of other part of right foot with unspecified severity; E11.40 Type 2 diabetes mellitus with diabetic neuropathy, unspecified; E11.319 Type 2 diabetes mellitus with unspecified diabetic retinopathy without macular edema; E78.5 Hyperlipidemia, unspecified; I25.10 Atherosclerotic heart disease of native coronary artery without angina pectoris; E11.649 Type 2 diabetes mellitus with hypoglycemia without coma; E55.9 Vitamin D deficiency, unspecified; Z89.421 Acquired absence of other right toe(s); Z99.2 Dependence on renal dialysis
CPT/HCPCS: 36415; 71045; 80048; 80053; 80069; 80202; 82550; 82553; 82652; 82947; 82962; 83540; 83605; 83735; 83970; 84100; 84484; 85025; 85610; 85730; 87040-91; 87070; 87081; 87340; 87400; 90935; 93005; 93306; 93458; 94640; 94664; 96365; 96366; 96375; 97110; 97116; 97161; 97167; 97530; 99285-25

== ENCOUNTER 2019-02-25 12:52 | Emergency (ER) | payer MEDICARE, OTHER | END 2019-02-25 16:21 | disposition left against medical advice (07) | LOC: E/R 12:52 | DX: Z48.00 Encounter for change or removal of nonsurgical wound dressing (principal); E11.9 Type 2 diabetes mellitus without complications; I12.0 Hypertensive chronic kidney disease with stage 5 chronic kidney disease or end stage renal disease; N18.6 End stage renal disease; Z79.82 Long term (current) use of aspirin; Z79.4 Long term (current) use of insulin | CPT/HCPCS: 73630; 99283-25 ==